=== PATIENT | female | born 1980 | race Caucasian/White ===

== ENCOUNTER 2017-03-04 21:15 | Emergency (ER) | payer MEDICAID ==
[2017-03-05 02:09] LABS: microscopic required? YES; urine erythrocyte 1+ (NEGATIVE)
[2017-03-05 02:20] LABS: BASOPHIL % 0.8 % (0-2); PLATELET COUNT 224 x10^3mcL (130-400)
[2017-03-05 02:27] LABS: RED CELL DISTRIBUTION WIDTH 18.6 % (11.5-14.5)
[2017-03-05 03:09] VITALS: BP 118/71
== END 2017-03-05 03:09 | disposition home or self-care (01) ==
LOC: ED 21:15
PROVIDERS: Specialist
DX: O20.0 Threatened abortion (principal); Z3A.09 9 weeks gestation of pregnancy
CPT/HCPCS: 36415